=== PATIENT | female | born 2000 | race American Indian/Alaskan Native ===

== ENCOUNTER 2020-06-08 13:35 | Emergency (ER) | payer MEDICAID ==
[2020-06-08 13:42] VITALS: BP 121/79
--- NOTE | 2020-06-08 14:42 | Emergency Department Report ---
Blank Doc - Documentation Documentation: 20-year-old female that presents with n/v/d x1 week. This initial assessment/diagnostic orders/clinical plan/treatment(s) is/are subject to change based on patient's health status, clinical progression and re- assessment by fellow clinical providers in the ED. Further treatment and workup at subsequent clinical providers discretion. Patient/guardians urged not to elope from the ED as their condition may be serious if not clinically assessed and managed. Initial orders include: 1- Patient sent to [facility] for further evaluation and treatment 2- labs 3- UA
[2020-06-08 16:03] LABS: Basophils % (Auto) 0.5 % (0.0-1.8); Eosinophils # (Auto) 0.1 K/mm3 (0.0-0.4); Eosinophils % (Auto) 0.9 % (0.0-4.3); Hematocrit 38.8 % (30.3-42.9); Hemoglobin 12.6 gm/dl (10.1-14.3); Lymphocytes # (Auto) 3.1 K/mm3 (1.2-5.4); Lymphocytes % (Auto) 33.4 % (13.4-35.0); Mean Corpuscular HGB Conc 33 % (30-34); Mean Corpuscular Volume 89 fl (79-97); Monocytes # (Auto) 0.7 K/mm3 (0.0-0.8); Monocytes % (Auto) 7.9 % (0.0-7.3); Platelet Count 277 K/mm3 (140-440); Red Blood Count 4.35 M/mm3 (3.65-5.03); Red Cell Distribution Width 14.2 % (13.2-15.2)
[2020-06-08 16:09] LABS: Alanine Aminotransferase 9 units/L (7-56); Albumin 4.5 g/dL (3.9-5); BUN/Creatinine Ratio 9; Blood Urea Nitrogen 8 mg/dL (7-17); Calcium 9.3 mg/dL (8.4-10.2); Hemolysis Index 14
[2020-06-08] MEDS ORDERED: ONDANSETRON 4 MG ODT TAB PO ONE (16:13)
[2020-06-08 16:27] LABS: Bacteria,Urine 1+ /HPF (Negative); Bilirubin,Urine NEG (Negative); Blood,Urine NEG (Negative); Color,Urine Yellow (Yellow); Mucus,Urine 1+ /HPF
[2020-06-08 16:29] LABS: HCG Qualitative,Urine Negative (Negative)
--- NOTE | 2020-06-08 16:56 | Emergency Department Report ---
ED N/V/D HPI - General Chief complaint: Nausea/Vomiting/Diarrhea Stated complaint: N/V Time Seen by Provider: 06/08/20 14:41 Source: patient Mode of arrival: Ambulatory Limitations: No Limitations - History of Present Illness Initial comments: 20-year-old female presents to ED with nausea and vomiting since earlier this morning, around 2 AM. Patient denies any abdominal pain or diarrhea. Patient is unsure if she is , since she states she did not get her last Depo- Provera shot. Patient denies any fever, cough, shortness of breath, loss of smell or taste. She denies any sick contacts or known exposure to anyone who was tested positive for COVID-19. MD complaint: nausea, vomiting -: This morning Associated Abdominal Pain: No Severity: moderate Consistency: constant Improves with: none Worsens with: eating Associated Symptoms: denies: chest pain, cough, fever/chills, shortness of breath - Related Data Previous Rx's Medication Instructions Recorded Last Taken Type Ondansetron [Zofran Odt] 4 mg PO Q8HR PRN #20 tab.rapdis 06/08/20 Unknown Rx Allergies Allergy/AdvReac Type Severity Reaction Status Date / Time No Known Allergies Allergy Unverified 06/08/20 13:40 ED Review of Systems ROS: Stated complaint: N/V Other details as noted in HPI Comment: All other systems reviewed and negative Constitutional: denies: chills, fever Respiratory: denies: cough, shortness of breath Cardiovascular: denies: chest pain Gastrointestinal: nausea, vomiting, diarrhea. denies: abdominal pain ED Past Medical Hx - Past Medical History Previous Medical History?: No - Surgical History Past Surgical History?: Yes Additional Surgical History: C section - Social History Smoking Status: Never Smoker Substance Use Type: None - Medications Home Medications: Home Medications Medication Instructions Recorded Confirmed Last Taken Type Ondansetron [Zofran Odt] 4 mg PO Q8HR PRN #20 tab.rapdis 06/08/20 Unknown Rx ED Physical Exam - General Limitations: No Limitations General appearance: alert, in no apparent distress - Head Head exam: Present: atraumatic, normocephalic - Eye Eye exam: Present: normal appearance, EOMI - ENT ENT exam: Present: mucous membranes moist - Neck Neck exam: Present: normal inspection - Respiratory Respiratory exam: Present: normal lung sounds bilaterally. Absent: respiratory distress - Cardiovascular Cardiovascular Exam: Present: regular rate, normal rhythm - GI/Abdominal GI/Abdominal exam: Present: soft. Absent: distended, tenderness - Extremities Exam Extremities exam: Present: normal inspection - Neurological Exam Neurological exam: Present: alert, oriented X3 - Psychiatric Psychiatric exam: Present: normal affect, normal mood - Skin Skin exam: Present: warm, dry, intact, normal color ED Course Vital Signs 06/08/20 13:41 Temperature 98.1 F Pulse Rate 91 H Respiratory 16 Rate Blood Pressure 121/79 [Right] O2 Sat by Pulse 96 Oximetry ED Medical Decision Making - Lab Data Result diagrams: 06/08/20 15:33 06/08/20 15:33 - Medical Decision Making 20-year-old female with nausea and vomiting since early this morning. Labs unremarkable. test is negative. Patient given Zofran here in ED. She is feeling much better. She will be discharged at this time. Outpatient follow-up advised, return precautions given. - Differential Diagnosis , viral illness, pancreatitis Critical care attestation.: If time is entered above; I have spent that time in minutes in the direct care of this critically ill patient, excluding procedure time. ED Disposition Clinical Impression: Nausea & vomiting Disposition: DC-01 TO HOME OR SELFCARE Is pt being admited?: No Condition: Stable Instructions: Acute Nausea and Vomiting (ED) Prescriptions: Ondansetron [Zofran Odt] 4 mg PO Q8HR PRN #20 tab.rapdis PRN Reason: Vomiting Referrals: PRIMARY CARE [Primary Care Provider] - 3-5 Days [facility] [Provider Group] - 3-5 Days Time of Disposition: 16:55
== END 2020-06-08 17:08 | disposition home or self-care (01) ==
LOC: ED 13:35
DX: R11.2 Nausea with vomiting, unspecified (principal); Z98.890 Other specified postprocedural states
CPT/HCPCS: 36415; 80053; 81001; 81025; 83690; 85025; 99283; Q0162

== ENCOUNTER 2021-09-10 11:41 | Emergency (ER) | payer MEDICAID ==
[2021-09-10 12:03] VITALS: BP 111/76
--- NOTE | 2021-09-10 12:17 | Emergency Department Report ---
ED HPI - General Chief complaint: Vaginal Bleeding Stated complaint: VAGINAL BLEEDING Time Seen by Provider: 09/10/21 11:51 Source: patient Mode of arrival: Ambulatory Limitations: No Limitations - History of Present Illness Initial comments: The patient was evaluated in the emergency department for symptoms described in the history of present illness. He/she was evaluated in the context of the global COVID-19 pandemic, which necessitated consideration that the patient might be at risk for infection with the virus that causes COVID-19. I nstitutional protocols and algorithms that pertain to the evaluation of patients at risk for COVID-19 are in a state of rapid change based on information released by regulatory bodies including the CDC and federal and state organizations. These policies and algorithms were followed during the patient's care in the emergency department. Please note that these policies, procedures and recommendations changed on a rapid basis. [id number] -[place]ian female presents to the emergency room for vaginal spotting when she wipes. Patient reports she is 10 weeks and is followed by [facility]. She is 2 para 1. She also reports left side pain. She states she has her first ultrasound on Monday. She denies any dysuria reports this vaginal discharge that is light. She currently takes her vitamins and she is homeless. MD Complaint: vaginal bleeding -: This morning Location: pelvis Radiation: none Severity scale (0 -10): 1 Quality: cramping Consistency: intermittent Improves with: none Worsens with: none Associated symptoms: vaginal bleeding, vaginal discharge. denies: nausea/vomiting, abdominal pain, dysuria Vaginal bleeding: light :: Yes Number of weeks : 10 OB History - Current : no complications OB History - Previous Pregnancies: no complications - Related Data Previous Rx's Medication Instructions Recorded Last Taken Type Ondansetron [Zofran Odt] 4 mg PO Q8HR PRN #20 tab.rapdis 06/08/20 Unknown Rx Nitrofurantoin [place]/M-Cryst 100 mg PO Q12HR 10 Days #20 capsule 09/10/21 Unknown Rx [Macrobid CAP] Allergies Allergy/AdvReac Type Severity Reaction Status Date / Time No Known Allergies Allergy Unverified 06/08/20 13:40 ED Review of Systems ROS: Stated complaint: VAGINAL BLEEDING Other details as noted in HPI Comment: All other systems reviewed and negative ED Past Medical Hx - Past Medical History Previous Medical History?: No - Surgical History Past Surgical History?: No Additional Surgical History: C section - Social History Smoking Status: Never Smoker Substance Use Type: None - Medications Home Medications: Home Medications Medication Instructions Recorded Confirmed Last Taken Type Ondansetron [Zofran Odt] 4 mg PO Q8HR PRN #20 tab.rapdis 06/08/20 Unknown Rx Nitrofurantoin [place]/M-Cryst 100 mg PO Q12HR 10 Days #20 capsule 09/10/21 Unknown Rx [Macrobid CAP] ED Physical Exam - General Limitations: No Limitations General appearance: alert, in no apparent distress - Head Head exam: Present: atraumatic, normocephalic - Eye Eye exam: Present: normal appearance - ENT ENT exam: Present: mucous membranes moist - Neck Neck exam: Present: normal inspection - Respiratory Respiratory exam: Present: normal lung sounds bilaterally. Absent: respiratory distress - Cardiovascular Cardiovascular Exam: Present: regular rate, normal rhythm. Absent: systolic murmur, diastolic murmur, rubs, gallop - GI/Abdominal GI/Abdominal exam: Present: soft, normal bowel sounds - Extremities Exam Extremities exam: Present: normal inspection - Back Exam Back exam: Present: normal inspection - Neurological Exam Neurological exam: Present: alert, oriented X3 - Psychiatric Psychiatric exam: Present: normal affect, normal mood - Skin Skin exam: Present: warm, dry, intact, normal color. Absent: rash ED Course Vital Signs 09/10/21 11:43 Temperature 97.7 F Pulse Rate 84 Respiratory 16 Rate Blood Pressure 111/76 O2 Sat by Pulse 100 Oximetry ED Medical Decision Making - Lab Data Result diagrams: 09/10/21 12:42 - Radiology Data Radiology results: report reviewed [address] [address] Ultrasound Report Signed Patient: GENEVA BRITTON MR#: [id number] : 2000 Acct:[id number] Age/Sex: 21 / F ADM Date: 09/10/21 Loc: ED Attending Dr: Ordering Physician: NAV CHOI Date of Service: 09/10/21 Procedure(s): US OB transvaginal Accession Number(s): [id number] cc: NAV CHOI ULTRASOUND OBSTETRIC Indication: 10 wks preg, bleeding and cramps Findings: There is a single, living intrauterine . [place]-rump length = 0.31 cm = 5 weeks, 6 day(s). heart rate is 137 beats per minute. The ovaries are grossly unremarkable aside from a 2 cm cystlike lesion within the right ovary. There is minimal free fluid. 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 Impression: Single, living intrauterine with estimated sonographic age of 5 weeks, 6 day(s). Signer Name: Juni Blanton MD Signed: 09/10/2021 4:15 PM Workstation Name: [id number] Transcribed By: BC Dictated By: Juni Blanton MD Electronically Authenticated By: Juni Blanton MD Signed Date/Time: 09/10/211614 DD/ 10 TD/TT: - Medical Decision Making [id number] -Iranian female presents to the emergency room for vaginal spotting when she wipes. Patient reports she is 10 weeks and is [facility]. She is 2 para 1. She also reports left side pain. She states she has her first ultrasound on Monday. She denies any dysuria reports this vaginal discharge that is light. She currently takes her vitamins and she is homeless. protocol for vaginal bleeding has been initiated. Ultrasound has been ordered. Critical care attestation.: If time is entered above; I have spent that time in minutes in the direct care of this critically ill patient, excluding procedure time. ED Disposition Clinical Impression: Vaginal spotting, Homelessness unspecified UTI (urinary tract infection) during Qualifiers: Trimester: first trimester Qualified Code(s): O23.41 - Unspecified infection of urinary tract in , first trimester Disposition: HOME / SELF CARE / HOMELESS Is pt being admited?: No Does the pt Need Aspirin: No Condition: Stable Instructions: Vaginal Bleeding During , First Trimester, Vaginal Bleeding During , First Trimester, Rrah-rh-[place] Additional Instructions: Ultrasound shows you are approximately 5 weeks and 3 days . Your hCG level is 31,000. Your urine shows that you have a urinary tract infection you will be treated. Complete your antibiotics increase your fluid intake advance her diet as tolerated. Keep your appointment with your [facility]. Return back to the emergency room if worsening bleeding. Refrain from intercourse. Prescriptions: Nitrofurantoin [place]/M-Cryst [Macrobid CAP] 100 mg PO Q12HR 10 Days #20 capsule Referrals: PRIMARY CAREMD [Primary Care Provider] - 3-5 Days [facility] [Provider Group] - 3-5 Days Time of Disposition: 17:24
[2021-09-10 13:36] LABS: Basophils # (Auto) 0.1 K/mm3 (0.0-0.1); Basophils % (Auto) 0.7 % (0.0-1.8); Eosinophils # (Auto) 0.2 K/mm3 (0.0-0.4); Eosinophils % (Auto) 2.6 % (0.0-4.3); Hematocrit 36.5 % (30.3-42.9); Hemoglobin 11.5 gm/dl (10.1-14.3); Lymphocytes # (Auto) 2.4 K/mm3 (1.2-5.4); Lymphocytes % (Auto) 27.6 % (13.4-35.0); Mean Corpuscular HGB Conc 32 % (30-34); Mean Corpuscular Volume 89 fl (79-97); Monocytes # (Auto) 0.6 K/mm3 (0.0-0.8); Monocytes % (Auto) 6.5 % (0.0-7.3); Platelet Count 318 K/mm3 (140-440); Red Blood Count 4.08 M/mm3 (3.65-5.03)
[2021-09-10 13:56] LABS: Bilirubin,Urine NEG (Negative); Blood,Urine LG (Negative); Color,Urine Amber (Yellow); Mucus,Urine 3+ /HPF
--- NOTE | 2021-09-10 16:19 | Ultrasound Report ---
ULTRASOUND OBSTETRIC Indication: 10 wks preg, bleeding and cramps Findings: There is a single, living intrauterine . [place]-rump length = 0.31 cm = 5 weeks, 6 day(s). heart rate is 137 beats per minute. The ovaries are grossly unremarkable aside from a 2 cm cystlike lesion within the right ovary. There is minimal free fluid. 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 Impression: Single, living intrauterine with estimated sonographic age of 5 weeks, 6 day(s). Signer Name: Juni Blanton MD Signed: 09/10/2021 4:15 PM Workstation Name: [id number]
== END 2021-09-10 17:42 | disposition home or self-care (01) ==
LOC: ED 11:41
DX: O26.851 Spotting complicating pregnancy, first trimester (principal); O23.41 Unspecified infection of urinary tract in pregnancy, first trimester; Z98.890 Other specified postprocedural states; Z3A.01 Less than 8 weeks gestation of pregnancy
CPT/HCPCS: 36415; 76801; 76817; 81001; 84702; 85025; 86900; 86901; 87086; 99284